=== PATIENT | female | born 1970 | race Caucasian/White ===

== ENCOUNTER 2018-04-21 09:11 | Observation (INO) | payer OTHER, SELFPAY ==
[2018-04-21] VITALS (13 sets, daily range): BP systolic 143–214; BP diastolic 85–114; PULSE 58–72; RESP 11–20; TEMP 36.3–36.5; O2SAT 96–100; BMI 34.5
--- NOTE | 2018-04-21 09:19 | ED.CHESTPAIN ---
HPI - Chest Pain General Chief Complaint: Chest Pain Stated Complaint: sent over from urgent care for heart pain Time Seen by Provider: 04/21/18 09:19 Source: patient Mode of arrival: ambulatory Limitations: no limitations History of Present Illness HPI narrative: 47-year-old female here for evaluation of left-sided chest pain. Patient states that it started at 5 o'clock this morning while she was at work. Has been consistent since then. describes it as a pressure sensation and sharp pain that radiates down her left arm. No shortness of breath. Patient is also hypertensive. She states she has a history of hypertension and has not taken any of her blood pressure medicines for the past couple days because she is running out of them. Does have a history of coronary artery disease has had a stent placement in the past. States she has also had a stroke without any residual deficits. She took a full dose aspirin last evening. She states that the discomfort she is having today feels just like the discomfort that led to her prior stent. Related Data Home Medications Medication Instructions Recorded Confirmed amlodipine 5 mg PO BID 04/21/18 04/21/18 aspirin 325 mg PO QPM 04/21/18 04/21/18 lisinopril 20 mg PO BID 04/21/18 04/21/18 metoprolol tartrate 50 mg PO QPM 04/21/18 04/21/18 metoprolol tartrate 100 mg PO DAILY 04/21/18 04/21/18 [id number] [One 1 tab PO DAILY 04/21/18 04/21/18 Daily Women 50 Plus] Allergies Allergy/AdvReac Type Severity Reaction Status Date / Time No Known Drug Allergies Allergy Unverified 04/21/18 08:34 Review of Systems Constitutional Denies fatigue, Denies fever(s) and Denies headache(s) ENT Ears, Nose, Mouth, and Throat: Denies dizziness and Denies headache(s) Cardiovascular Reports chest pain, Reports diaphoresis, Denies syncope, Denies edema, Denies irregular heart rhythm, Denies palpitations and Denies dyspnea Respiratory Denies cough, Denies pain on inspiration, Denies dyspnea and Denies wheezing Gastrointestinal Gastrointestinal: Denies abdominal pain, Denies melena, Denies diarrhea, Reports nausea and Denies vomiting Genitourinary Denies dysuria Musculoskeletal Denies myalgias and Denies arthralgias Integumentary/Breasts Denies rash and Denies wounds Neurologic Denies dizziness, Denies syncope and Denies headache(s) Endocrine Denies fatigue and Denies palpitations Allergic/Immunologic Denies wheezing [facility] Medical History Hypertension (Acute) Social History Smoking Status: Current every day smoker alcohol intake: current Comment: reviewed patient's past medical surgical social and family history Exam Initial Vital Signs Initial Vital Signs: Vital Signs Pulse Rate 65 04/21/18 09:19 Blood Pressure 214/114 H 04/21/18 09:19 Pulse Oximetry 100 04/21/18 09:19 Const General: cooperative, healthy appearing, comfortable, well developed, well groomed and No acute distress Orientation: alert, awake and oriented x3 HENMT Head: normal to inspection and normocephalic Resp Effort & Inspection: normal respiratory effort Auscultation: clear to auscultation bilaterally Cardio Rate: regular rate Rhythm: regular rhythm Heart Sounds: no murmurs Pulses: radial pulses present GI Inspection: non-distended Palpation: soft, firm and tender Skin Lesions: no lesions Rashes: no rashes Neuro General: alert, awake and oriented x3 Cognition: normal cognition Speech: speech normal Gait: normal gait Motor: muscle tone normal throughout Sensory Exam: no sensory deficits noted Extrem General: normal to inspection and capillary refill normal Psych Appearance: grossly normal and well kempt Scores HEART Score Heart Score history: Moderately Suspicious Heart Score EKG: Normal Heart Score Age: 45-64 years old Heart Score risk factors: > 3 risk factors or hx of atherosclerotic disease Heart Score troponin: < or = to normal limit Heart Score Total: 4 Course Orders Ordered: ED Orders 04/21/18 09:19 XR chest 1V Stat EKG-12 Lead Stat 04/21/18 10:25 Complete Blood Count AUTO DIFF Stat Comprehensive Metabolic Panel Stat Lipase Stat Partial Thromboplastin Time Stat Prothrombin Time INR Stat Troponin & CK Cardiac Panel Stat 04/21/18 13:35 Troponin I Stat Acetaminophen (Tylenol) 650 mg PO Q6HR PRN PRN Reason: As Needed for Fever/Mild Pain Ondansetron HCl (Zofran) 4 mg IV Q4HR PRN PRN Reason: Nausea And Vomiting Discontinued Medications Acetaminophen (Tylenol) 975 mg PO NOW ONE Stop: 04/21/18 12:15 Last Admin: 04/21/18 12:24 Dose: 975 mg Aspirin (Aspirin Chew) 324 mg PO NOW ONE Stop: 04/21/18 09:34 Last Admin: 04/21/18 10:16 Dose: 324 mg Nitroglycerin (Nitro-Bid) 1 inch TOP NOW ONE Stop: 04/21/18 09:34 Last Admin: 04/21/18 10:17 Dose: 1 inch Vital Signs - 8 hr 04/21/18 09:19 04/21/18 10:06 04/21/18 10:17 Temperature 97.7 F Pulse Rate 65 65 61 Respiratory Rate 17 Blood Pressure 214/114 H 173/106 H Blood Pressure [Left Arm] 214/114 H Pulse Oximetry 100 100 04/21/18 11:03 04/21/18 12:11 04/21/18 12:33 Temperature Pulse Rate 68 70 64 Respiratory Rate 12 15 13 Blood Pressure Blood Pressure [Left Arm] 168/108 H 170/99 H 178/101 H Pulse Oximetry 98 100 100 04/21/18 13:00 04/21/18 13:58 04/21/18 14:15 Temperature Pulse Rate 62 58 L 72 Respiratory Rate 11 L 16 Blood Pressure 168/99 H Blood Pressure [Left Arm] 154/94 H 143/88 H Pulse Oximetry 97 96 MDM - Chest Pain Lab Data Attestation: I reviewed the patient's lab results. Result diagrams: 04/21/18 10:25 04/21/18 10:25 Lab Results 04/21/18 04/21/18 04/21/18 Range/Units 10:25 10:25 10:25 WBC 5.0 (4.5-11.0) X10^3/uL RBC 4.27 (4.0-5.2) X10^6/uL Hgb 14.4 (12.0-16.0) g/dL Hct 41.1 (36-46) % MCV 96.2 (80-100) fL MCH 33.8 (26-34) PG MCHC 35.1 (30-36) % RDW 12.8 (11.6-14.8) % Plt Count 156 (150-400) X10^3/uL Neut % (Auto) 53.7 (50-75) % Lymph % (Auto) 38.3 (25-40) % [place] % (Auto) 6.3 (3-14) % Eos % (Auto) 1.2 L (2-4) % Baso % (Auto) 0.5 (0-2) % Neut # (Auto) 2700 L (6845-4964) /uL PT 11.0 (10.1-12.7) SECONDS INR 1.0 (0.9-1.3) APTT 29 (26.4-36.2) SECONDS Sodium 141 (137-145) mmol/L Potassium 4.2 (3.4-5.1) mmol/L Chloride 104 (98-107) mmol/L Carbon Dioxide 30 (22-32) mmol/L BUN 13 (7-17) mg/dL Creatinine 0.80 (0.52-1.04) mg/dL Estimated GFR > 60.0 (>60) mL/min BUN/Creatinine Ratio 16.3 (6-22) Glucose 94 (70-100) mg/dL Calcium 9.3 (8.4-10.2) mg/dL Total Bilirubin 0.5 (0.2-1.3) mg/dL AST 21 (14-36) IU/L ALT 22 (9-52) IU/L Alkaline Phosphatase 41 (38-126) U/L Total Creatine Kinase 67 (30-135) U/L Troponin I < 0.012 (0.01-0.034) ng/mL Total Protein 7.1 (6.3-8.2) g/dL Albumin 4.1 (3.5-5.0) g/dL Globulin 3.0 (1.7-4.1) g/dL Albumin/Globulin Ratio 1.4 (1.0-2.8) Lipase 30 (23-300) U/L 04/21/18 Range/Units 13:35 WBC (4.5-11.0) X10^3/uL RBC (4.0-5.2) X10^6/uL Hgb (12.0-16.0) g/dL Hct (36-46) % MCV (80-100) fL MCH (26-34) PG MCHC (30-36) % RDW (11.6-14.8) % Plt Count (150-400) X10^3/uL Neut % (Auto) (50-75) % Lymph % (Auto) (25-40) % [place] % (Auto) (3-14) % Eos % (Auto) (2-4) % Baso % (Auto) (0-2) % Neut # (Auto) (8264-6620) /uL PT (10.1-12.7) SECONDS INR (0.9-1.3) APTT (26.4-36.2) SECONDS Sodium (137-145) mmol/L Potassium (3.4-5.1) mmol/L Chloride (98-107) mmol/L Carbon Dioxide (22-32) mmol/L BUN (7-17) mg/dL Creatinine (0.52-1.04) mg/dL Estimated GFR (>60) mL/min BUN/Creatinine Ratio (6-22) Glucose (70-100) mg/dL Calcium (8.4-10.2) mg/dL Total Bilirubin (0.2-1.3) mg/dL AST (14-36) IU/L ALT (9-52) IU/L Alkaline Phosphatase (38-126) U/L Total Creatine Kinase (30-135) U/L Troponin I < 0.012 (0.01-0.034) ng/mL Total Protein (6.3-8.2) g/dL Albumin (3.5-5.0) g/dL Globulin (1.7-4.1) g/dL Albumin/Globulin Ratio (1.0-2.8) Lipase (23-300) U/L Imaging Data Chest x-ray: Radiologist's impression: PROCEDURE: XR CHEST 1V INDICATIONS: chest pain TECHNIQUE: One view of the chest was acquired. COMPARISON: [facility], , CHEST 1 VIEW, 03/28/2015, 16:24. FINDINGS: Surgical changes and devices: None. Lungs and pleura: No pleural effusions or pneumothorax. Lungs are clear. Mediastinum: Mediastinal contours appear normal. Heart size is mildly enlarged. Bones and chest wall: No suspicious bony lesions. Overlying soft tissues appear unremarkable. IMPRESSION: No acute pulmonary pathology. No significant changes from previous study. Dictated by: Roberto Price M.D. on 04/21/2018 at 9:41 Approved by: Roberto Price M.D. on 04/21/2018 at 9:42 ECG Data Attestation: I personally reviewed and interpreted this ECG as follows: Prior ECG tracings: not available for review Interpretation: Sinus rhythm ventricular rate is 71 normal axis Normal QRS normal QTC Q-waves in lead [address] T wave changes MDM Narrative Medical decision making narrative: patient with a history of coronary artery disease and stent placement. Came in hypertensive which improved with nitroglycerin paste. Patient was also given an aspirin today. She did take an aspirin last evening. Patient with left-sided chest pressure that improved with the nitroglycerin. First troponin was negative. EKG shows no signs of ST elevation DE. I discussed the case with the campground cleaning attendant at [facility] who states that if the patient is not having had a DE that keeping her here at this hospital is not unreasonable since she will not be sent immediately to a cardiac catheterization. I discussed the case with Dr. Matthews with Internal Medicine who recommended that we keep the patient here in the emergency department for a 2nd troponin so that if it was elevated we could transfer her. The 2nd troponin came back negative. During her stay here the patient accidentally took off the nitro paste in her chest pressure returned. It was readministered and she stated that her pressure then improved. Secondary to her history and physical exam in risk factors will admit the patient here for continued evaluation and treatment. Dr. Matthews will accept. Discussed this with the patient who expressed understanding and agreement. Discharge Plan Departure Patient Disposition: Admitted as Observation Clinical Impression: Chest pain
--- NOTE | 2018-04-21 09:56 | ED_ITS ---
HPI - Chest Pain General Chief Complaint: Chest Pain Stated Complaint: sent over from urgent care for heart pain Time Seen by Provider: 04/21/18 09:19 Source: patient Mode of arrival: ambulatory Limitations: no limitations History of Present Illness HPI narrative: 47-year-old female here for evaluation of left-sided chest pain. Patient states that it started at 5 o'clock this morning while she was at work. Has been consistent since then. describes it as a pressure sensation and sharp pain that radiates down her left arm. No shortness of breath. Patient is also hypertensive. She states she has a history of hypertension and has not taken any of her blood pressure medicines for the past couple days because she is running out of them. Does have a history of coronary artery disease has had a stent placement in the past. States she has also had a stroke without any residual deficits. She took a full dose aspirin last evening. She states that the discomfort she is having today feels just like the discomfort that led to her prior stent. Related Data Home Medications Medication Instructions Recorded Confirmed amlodipine 5 mg PO BID 04/21/18 04/21/18 aspirin 325 mg PO QPM 04/21/18 04/21/18 lisinopril 20 mg PO BID 04/21/18 04/21/18 metoprolol tartrate 50 mg PO QPM 04/21/18 04/21/18 metoprolol tartrate 100 mg PO DAILY 04/21/18 04/21/18 [id number] [One 1 tab PO DAILY 04/21/18 04/21/18 Daily Women 50 Plus] Allergies Allergy/AdvReac Type Severity Reaction Status Date / Time No Known Drug Allergies Allergy Unverified 04/21/18 08:34 Review of Systems Constitutional Denies fatigue, Denies fever(s) and Denies headache(s) ENT Ears, Nose, Mouth, and Throat: Denies dizziness and Denies headache(s) Cardiovascular Reports chest pain, Reports diaphoresis, Denies syncope, Denies edema, Denies irregular heart rhythm, Denies palpitations and Denies dyspnea Respiratory Denies cough, Denies pain on inspiration, Denies dyspnea and Denies wheezing Gastrointestinal Gastrointestinal: Denies abdominal pain, Denies melena, Denies diarrhea, Reports nausea and Denies vomiting Genitourinary Denies dysuria Musculoskeletal Denies myalgias and Denies arthralgias Integumentary/Breasts Denies rash and Denies wounds Neurologic Denies dizziness, Denies syncope and Denies headache(s) Endocrine Denies fatigue and Denies palpitations Allergic/Immunologic Denies wheezing [facility] Medical History Hypertension (Acute) Social History Smoking Status: Current every day smoker alcohol intake: current Comment: reviewed patient's past medical surgical social and family history Exam Initial Vital Signs Initial Vital Signs: Vital Signs Pulse Rate 65 04/21/18 09:19 Blood Pressure 214/114 H 04/21/18 09:19 Pulse Oximetry 100 04/21/18 09:19 Const General: cooperative, healthy appearing, comfortable, well developed, well groomed and No acute distress Orientation: alert, awake and oriented x3 HENMT Head: normal to inspection and normocephalic Resp Effort & Inspection: normal respiratory effort Auscultation: clear to auscultation bilaterally Cardio Rate: regular rate Rhythm: regular rhythm Heart Sounds: no murmurs Pulses: radial pulses present GI Inspection: non-distended Palpation: soft, firm and tender Skin Lesions: no lesions Rashes: no rashes Neuro General: alert, awake and oriented x3 Cognition: normal cognition Speech: speech normal Gait: normal gait Motor: muscle tone normal throughout Sensory Exam: no sensory deficits noted Extrem General: normal to inspection and capillary refill normal Psych Appearance: grossly normal and well kempt Scores HEART Score Heart Score history: Moderately Suspicious Heart Score EKG: Normal Heart Score Age: 45-64 years old Heart Score risk factors: > 3 risk factors or hx of atherosclerotic disease Heart Score troponin: < or = to normal limit Heart Score Total: 4 Course Orders Ordered: ED Orders 04/21/18 09:19 XR chest 1V Stat EKG-12 Lead Stat 04/21/18 10:25 Complete Blood Count AUTO DIFF Stat Comprehensive Metabolic Panel Stat Lipase Stat Partial Thromboplastin Time Stat Prothrombin Time INR Stat Troponin & CK Cardiac Panel Stat 04/21/18 13:35 Troponin I Stat Acetaminophen (Tylenol) 650 mg PO Q6HR PRN PRN Reason: As Needed for Fever/Mild Pain Ondansetron HCl (Zofran) 4 mg IV Q4HR PRN PRN Reason: Nausea And Vomiting Discontinued Medications Acetaminophen (Tylenol) 975 mg PO NOW ONE Stop: 04/21/18 12:15 Last Admin: 04/21/18 12:24 Dose: 975 mg Aspirin (Aspirin Chew) 324 mg PO NOW ONE Stop: 04/21/18 09:34 Last Admin: 04/21/18 10:16 Dose: 324 mg Nitroglycerin (Nitro-Bid) 1 inch TOP NOW ONE Stop: 04/21/18 09:34 Last Admin: 04/21/18 10:17 Dose: 1 inch Vital Signs - 8 hr 04/21/18 09:19 04/21/18 10:06 04/21/18 10:17 Temperature 97.7 F Pulse Rate 65 65 61 Respiratory Rate 17 Blood Pressure 214/114 H 173/106 H Blood Pressure [Left Arm] 214/114 H Pulse Oximetry 100 100 04/21/18 11:03 04/21/18 12:11 04/21/18 12:33 Temperature Pulse Rate 68 70 64 Respiratory Rate 12 15 13 Blood Pressure Blood Pressure [Left Arm] 168/108 H 170/99 H 178/101 H Pulse Oximetry 98 100 100 04/21/18 13:00 04/21/18 13:58 04/21/18 14:15 Temperature Pulse Rate 62 58 L 72 Respiratory Rate 11 L 16 Blood Pressure 168/99 H Blood Pressure [Left Arm] 154/94 H 143/88 H Pulse Oximetry 97 96 MDM - Chest Pain Lab Data Attestation: I reviewed the patient's lab results. Result diagrams: 04/21/18 10:25 04/21/18 10:25 Lab Results 04/21/18 04/21/18 04/21/18 Range/Units 10:25 10:25 10:25 WBC 5.0 (4.5-11.0) X10^3/uL RBC 4.27 (4.0-5.2) X10^6/uL Hgb 14.4 (12.0-16.0) g/dL Hct 41.1 (36-46) % MCV 96.2 (80-100) fL MCH 33.8 (26-34) PG MCHC 35.1 (30-36) % RDW 12.8 (11.6-14.8) % Plt Count 156 (150-400) X10^3/uL Neut % (Auto) 53.7 (50-75) % Lymph % (Auto) 38.3 (25-40) % [place] % (Auto) 6.3 (3-14) % Eos % (Auto) 1.2 L (2-4) % Baso % (Auto) 0.5 (0-2) % Neut # (Auto) 2700 L (7486-5358) /uL PT 11.0 (10.1-12.7) SECONDS INR 1.0 (0.9-1.3) APTT 29 (26.4-36.2) SECONDS Sodium 141 (137-145) mmol/L Potassium 4.2 (3.4-5.1) mmol/L Chloride 104 (98-107) mmol/L Carbon Dioxide 30 (22-32) mmol/L BUN 13 (7-17) mg/dL Creatinine 0.80 (0.52-1.04) mg/dL Estimated GFR > 60.0 (>60) mL/min BUN/Creatinine Ratio 16.3 (6-22) Glucose 94 (70-100) mg/dL Calcium 9.3 (8.4-10.2) mg/dL Total Bilirubin 0.5 (0.2-1.3) mg/dL AST 21 (14-36) IU/L ALT 22 (9-52) IU/L Alkaline Phosphatase 41 (38-126) U/L Total Creatine Kinase 67 (30-135) U/L Troponin I < 0.012 (0.01-0.034) ng/mL Total Protein 7.1 (6.3-8.2) g/dL Albumin 4.1 (3.5-5.0) g/dL Globulin 3.0 (1.7-4.1) g/dL Albumin/Globulin Ratio 1.4 (1.0-2.8) Lipase 30 (23-300) U/L 04/21/18 Range/Units 13:35 WBC (4.5-11.0) X10^3/uL RBC (4.0-5.2) X10^6/uL Hgb (12.0-16.0) g/dL Hct (36-46) % MCV (80-100) fL MCH (26-34) PG MCHC (30-36) % RDW (11.6-14.8) % Plt Count (150-400) X10^3/uL Neut % (Auto) (50-75) % Lymph % (Auto) (25-40) % [place] % (Auto) (3-14) % Eos % (Auto) (2-4) % Baso % (Auto) (0-2) % Neut # (Auto) (2510-6913) /uL PT (10.1-12.7) SECONDS INR (0.9-1.3) APTT (26.4-36.2) SECONDS Sodium (137-145) mmol/L Potassium (3.4-5.1) mmol/L Chloride (98-107) mmol/L Carbon Dioxide (22-32) mmol/L BUN (7-17) mg/dL Creatinine (0.52-1.04) mg/dL Estimated GFR (>60) mL/min BUN/Creatinine Ratio (6-22) Glucose (70-100) mg/dL Calcium (8.4-10.2) mg/dL Total Bilirubin (0.2-1.3) mg/dL AST (14-36) IU/L ALT (9-52) IU/L Alkaline Phosphatase (38-126) U/L Total Creatine Kinase (30-135) U/L Troponin I < 0.012 (0.01-0.034) ng/mL Total Protein (6.3-8.2) g/dL Albumin (3.5-5.0) g/dL Globulin (1.7-4.1) g/dL Albumin/Globulin Ratio (1.0-2.8) Lipase (23-300) U/L Imaging Data Chest x-ray: Radiologist's impression: PROCEDURE: XR CHEST 1V INDICATIONS: chest pain TECHNIQUE: One view of the chest was acquired. COMPARISON: [facility], , CHEST 1 VIEW, 03/28/2015, 16:24. FINDINGS: Surgical changes and devices: None. Lungs and pleura: No pleural effusions or pneumothorax. Lungs are clear. Mediastinum: Mediastinal contours appear normal. Heart size is mildly enlarged. Bones and chest wall: No suspicious bony lesions. Overlying soft tissues appear unremarkable. IMPRESSION: No acute pulmonary pathology. No significant changes from previous study. Dictated by: Roberto Price M.D. on 04/21/2018 at 9:41 Approved by: Roberto Price M.D. on 04/21/2018 at 9:42 ECG Data Attestation: I personally reviewed and interpreted this ECG as follows: Prior ECG tracings: not available for review Interpretation: Sinus rhythm ventricular rate is 71 normal axis Normal QRS normal QTC Q-waves in lead [address] T wave changes MDM Narrative Medical decision making narrative: patient with a history of coronary artery disease and stent placement. Came in hypertensive which improved with nitroglycerin paste. Patient was also given an aspirin today. She did take an aspirin last evening. Patient with left-sided chest pressure that improved with the nitroglycerin. First troponin was negative. EKG shows no signs of ST elevation ID. I discussed the case with the criminal attorney at [facility] who states that if the patient is not having had a ID that keeping her here at this hospital is not unreasonable since she will not be sent immediately to a cardiac catheterization. I discussed the case with Dr. Matthews with Internal Medicine who recommended that we keep the patient here in the emergency department for a 2nd troponin so that if it was elevated we could transfer her. The 2nd troponin came back negative. During her stay here the patient accidentally took off the nitro paste in her chest pressure returned. It was readministered and she stated that her pressure then improved. Secondary to her history and physical exam in risk factors will admit the patient here for continued evaluation and treatment. Dr. Matthews will accept. Discussed this with the patient who expressed understanding and agreement. Discharge Plan Departure Patient Disposition: Admitted as Observation Clinical Impression: Chest pain
[2018-04-21] MEDS: ASPIRIN 81 MG TAB 324 MG PO (10:16)
[2018-04-21] MEDS: NITROGLYCERIN OINT 1 INCH/GM OINT...G. TOP ×2 (10:17→23:16)
[2018-04-21 10:36] LABS: Add Manual Diff / Slide Review NO; Basophils Percent Auto 0.5 % (0-2); Eosinophils Percent Auto 1.2 % (2-4); Hematocrit 41.1 % (36-46); Hemoglobin 14.4 g/dL (12.0-16.0); Lymphocytes Percent Auto 38.3 % (25-40); Mean Corpuscular HGB Conc 35.1 % (30-36); Mean Corpuscular Hemoglobin 33.8 PG (26-34); Mean Corpuscular Volume 96.2 fL (80-100); Monocytes Percent Auto 6.3 % (3-14); Neutrophils Absolute Auto 2700 /uL (3000-5900); Neutrophils Percent Auto 53.7 % (50-75); Platelet Count 156 X10^3/uL (150-400); Red Blood Cell Count 4.27 X10^6/uL (4.0-5.2); Red Cell Distribution Width 12.8 % (11.6-14.8)
[2018-04-21 10:46] LABS: PTT Partial Thromboplastin Tim 29 SECONDS (26.4-36.2)
[2018-04-21 10:53] LABS: Alanine Aminotransferase 22 IU/L (9-52); Albumin 4.1 g/dL (3.5-5.0); Albumin Globulin Ratio 1.4 (1.0-2.8); Alkaline Phosphatase 41 U/L (38-126); Aspartate Aminotransferase 21 IU/L (14-36); BUN Creatinine Ratio 16.3 (6-22); Bilirubin Total 0.5 mg/dL (0.2-1.3); Blood Urea Nitrogen 13 mg/dL (7-17); Calcium 9.3 mg/dL (8.4-10.2); Carbon Dioxide 30 mmol/L (22-32); Chloride 104 mmol/L (98-107); Creatine Kinase 67 U/L (30-135); Estimated Glomerular Filt Rate > 60.0 mL/min (>60); Glucose 94 mg/dL (70-100); HEMOLYSIS < 15 (0-50); Lipase 30 U/L (23-300); Potassium 4.2 mmol/L (3.4-5.1); Sodium 141 mmol/L (137-145); Total Protein 7.1 g/dL (6.3-8.2)
[2018-04-21 11:04] LABS: Troponin I < 0.012 ng/mL (0.01-0.034)
[2018-04-21] MEDS: ACETAMINOPHEN 325 MG TABLET 975 MG PO (12:24)
--- NOTE | 2018-04-21 13:18 | PC.NURSE ---
Pts chest pain returning after accidentally pulling nitro paste off . Dr Arias aware,ordered ntg past 1 inch replaced.
--- NOTE | 2018-04-21 13:20 | PC.NURSE ---
dr. varela said to leave nitro if chest pain was gone, pt states still has pressure. 1 nitro paste replaced.
[2018-04-21 14:18] LABS: Troponin I < 0.012 ng/mL (0.01-0.034)
[2018-04-21] MEDS: SODIUM CHLORIDE 0.9% 1,000 ML 125 ML IV (15:12)
--- NOTE | 2018-04-21 15:27 | PC.NURSE ---
called for report to ICU and they said they would call back in 5 minutes.
--- NOTE | 2018-04-21 16:16 | PC.NURSE ---
per provider patient ok to go up without telemetry. No new orders at this time.
[2018-04-21] MEDS: NITROGLYCERIN 0.4 MG SL TAB SL ×4 (17:09→23:16)
[2018-04-21] MEDS: HEPARIN DRIP 25,000 UNIT/500 ML IV.SOLN 21.228 UNIT IV (17:13)
[2018-04-21] MEDS: HEPARIN 5,000 UNIT/ML VIAL 5000 UNIT IV (17:15)
[2018-04-21] MEDS: MORPHINE 2 MG/ML INJ IV (18:05)
[2018-04-21] MEDS: ACETAMINOPHEN 325 MG TABLET 650 MG PO (18:24)
[2018-04-21 18:33] LABS: Creatine Kinase 56 U/L (30-135)
[2018-04-21 18:48] LABS: Troponin I < 0.012 ng/mL (0.01-0.034)
--- NOTE | 2018-04-21 19:46 | PC.NURSE ---
Addendum entered by Iliana Akers R.N. 04/21/18 23:05: pt had recurrence of chest pain and headache. Morphine given. heparin gtt infusing. IVF infusing. Cool cloth to forehead and IV morphine given. Original Note: jackie note pt admitted from ER. Pt had chest pain8/10, left side. Pt describes pain as throbbing, then gets a sharp pain. With approval from Dr. Matthews, gave 3 sublingual ntg, O2 at 2L/min, heparin gtt started. pain not fully resolved, so called Dr. Matthews again. Received order for one tome dose of morphine. Pain now dulled. Dr. Matthews in to see pt.
--- NOTE | 2018-04-21 20:48 | PM.HP.1 ---
History of Present Illness Date Patient Seen: 04/21/18 Time Patient Seen: 20:49 Chief complaint: sent over from urgent care for heart pain Narrative: Patient referred to ER from walk in clinic to evaluate for chest pain. Patient notes the chest pain similar to chest pain she experienced when she had a coronary artery stent placed in 2010. Patient has continued to smoke cigarettes till AM today. Patient notes the chest pain 9/10 with radiation to the left jaw region and inside the left arm. Patient was walking at work when she first noticed the chest pain. No diaphoresis nor nausea noted. ER physican notes the Blood Pressure in the ER was 214/114. Patient has been non-compliant with her blood pressure meds. Patient History Medical History CVA (cerebral vascular accident) (Acute) Coronary artery disease (Acute) Hypertension (Acute) Family & Social History Safety & Behavioral: Feels Safe in Current Yes Environment Tobacco & Substance use: Smoking Status Current every day smoker alcohol intake current Meds Home Medications Medication Instructions Recorded Confirmed Type amlodipine 5 mg PO BID 04/21/18 04/21/18 History aspirin 325 mg PO QPM 04/21/18 04/21/18 History lisinopril 20 mg PO BID 04/21/18 04/21/18 History metoprolol tartrate 50 mg PO QPM 04/21/18 04/21/18 History metoprolol tartrate 100 mg PO DAILY 04/21/18 04/21/18 History [id number] [One 1 tab PO DAILY 04/21/18 04/21/18 History Daily Women 50 Plus] Allergies Allergy/AdvReac Type Severity Reaction Status Date / Time No Known Drug Allergies Allergy Unverified 04/21/18 08:34 Review of Systems Review of Systems All systems reviewed & are unremarkable except as noted in HPI and below Exam Vital Signs (past 8 hours): - 04/21/18 13:00 04/21/18 13:58 04/21/18 14:15 Temperature Pulse Rate 62 58 L 72 Respiratory Rate 11 L 16 Blood Pressure 168/99 H Blood Pressure [Left Arm] 154/94 H 143/88 H Pulse Oximetry 97 96 04/21/18 15:00 04/21/18 16:15 04/21/18 16:32 Temperature 97.3 F L Pulse Rate 58 L 67 62 Respiratory Rate 13 16 20 Blood Pressure 160/97 H 145/102 H Blood Pressure [Left Arm] 152/85 H Pulse Oximetry 98 98 97 Oxygen Delivery Method Room Air Narrative Exam Narrative: Patient is awake and alert in no apparent distress at rest HENMT Other: Hearing is grossly intact. Dentition is fair no lesions noted to the oral region. Nose septum to midline with no bleeding noted Eyes Other: pupils are equal round and reactive to light extraocular movement intact Neck Other: No JVD no carotid bruits Chest Other: No clearly reproducible chest wall tenderness characteristic of her chest pain Resp Other: Clear to auscultation with fairly good airflow sounds no wheezing no crackles Cardio Other: Regular in rate and rhythm no murmur rubs or gallops PMI nondisplaced pulses +3 to extremities GI Other: Soft and nontender positive bowel sounds no pedal splenomegaly no bruits no guarding Skin Other: No rashes or lesions noted non jaundiced turgor normal Neuro Other: No lateralizing neurologic deficit. Cranial nerves 2-12 grossly intact. Psych Other: Well oriented. Mood is pleasant and cooperative. Objective Labs Result Diagrams: 04/21/18 10:25 04/21/18 10:25 Labs: Laboratory Results - last 24 hr 04/21/18 04/21/18 04/21/18 10:25 10:25 10:25 WBC 5.0 RBC 4.27 Hgb 14.4 Hct 41.1 MCV 96.2 MCH 33.8 MCHC 35.1 RDW 12.8 Plt Count 156 Neut % (Auto) 53.7 Lymph % (Auto) 38.3 [place] % (Auto) 6.3 Eos % (Auto) 1.2 L Baso % (Auto) 0.5 Neut # (Auto) 2700 L PT 11.0 INR 1.0 APTT 29 Sodium 141 Potassium 4.2 Chloride 104 Carbon Dioxide 30 BUN 13 Creatinine 0.80 Estimated GFR > 60.0 BUN/Creatinine Ratio 16.3 Glucose 94 Calcium 9.3 Total Bilirubin 0.5 AST 21 ALT 22 Alkaline Phosphatase 41 Total Creatine Kinase 67 Troponin I < 0.012 Total Protein 7.1 Albumin 4.1 Globulin 3.0 Albumin/Globulin Ratio 1.4 Lipase 30 04/21/18 04/21/18 13:35 18:28 WBC RBC Hgb Hct MCV MCH MCHC RDW Plt Count Neut % (Auto) Lymph % (Auto) [place] % (Auto) Eos % (Auto) Baso % (Auto) Neut # (Auto) PT INR APTT Sodium Potassium Chloride Carbon Dioxide BUN Creatinine Estimated GFR BUN/Creatinine Ratio Glucose Calcium Total Bilirubin AST ALT Alkaline Phosphatase Total Creatine Kinase 56 Troponin I < 0.012 < 0.012 Total Protein Albumin Globulin Albumin/Globulin Ratio Lipase Assessment & Plan Plan: Assessment/Plan Narrative: 1. Unstable angina as acute coronary syndrome Patient provided IV heparin per ACS protocol. Nitro paste provided 1 in topical q.8 hours. Nitroglycerin sublingual as needed. Aspirin 325 mg daily. Requested patient to undergo nuclear treadmill stress test tomorrow in a.m.. Cardiac monitoring in ICU setting at this time. Repeat EKG in a.m.. Serial troponin and CK levels to be done. 2. Hypertensive crisis Note patient with a blood pressure of 214/114 in the emergency room setting when initially seen. Patient has been noncompliant with her home medications which include lisinopril and beta-amelia. Patient provided nitroglycerin paste. Nitroglycerin sublingual as needed. Start the patient back on lisinopril at 20 mg b.i.d.. Patient on metoprolol tartrate 25 mg b.i.d.. Pulse rate noted at 63. Holding parameter on metoprolol if pulse less than 60. 3. History of stroke CVA No residual deficit patient had the stroke around the time of her stent placement to the coronary artery in 2010. Patient on aspirin daily. Patient not on statin medication prior to admission. 4. Continued smoker addiction Lengthy conversation with the patient about smoking cessation. Nurse in the ICU was helpful in our conversation. Patient appeared to be receptive to our conversation. I screened the patient for depression. This did not appear to be an issue. Nicotine patch to be provided topically daily. DVT prophylaxis Patient on IV heparin with ACS protocol Discharge planning Patient admitted to inpatient status. ACS protocol provided. Hopefully patient will be suitable for discharge toward the end of the week. Further management hinges on results of the nuclear treadmill test scheduled for tomorrow in a.m.. Time Spent With Patient Time with patient: Greater than 35 minutes (70 min devoted to the patient patient in treatment and care) Quality AMI Clinical Trial Participant: No VTE Deep Vein Thrombosis/Pulmonary Embolism Present on Admission: No
[2018-04-21] MEDS: MORPHINE 5 MG/ML INJ 2 MG IV (22:33)
[2018-04-21] MEDS: LISINOPRIL 20 MG TABLET PO (22:35)
[2018-04-21] MEDS: METOPROLOL 25 MG TABLET PO (22:35)
[2018-04-22] VITALS (8 sets, daily range): BP systolic 92–152; BP diastolic 54–97; PULSE 55–68; RESP 10–18; TEMP 36.2–37.1; O2SAT 97–98
--- NOTE | 2018-04-22 | DI.NM.S_ITS ---
PROCEDURE: NM TEJ PERF SPECT SINGLE STUDY Exercise myocardial perfusion SPECT with gated imaging and ejection fraction RADIOPHARMACEUTICAL: 21.5 mCi Tc-99m sestamibi IV at peak exercise. INDICATIONS: unstable angina. Eval for Active Ischemic heart disease TECHNIQUE: Radiopharmaceutical was injected at peak stress test. SPECT images were obtained, with perfusion images in short axis, horizontal long axis, and vertical long axis views. Gated images were reviewed using Meizu software. COMPARISON: 04/23/2013. CARDIAC STRESS: A standard Dax treadmill exercise tolerance test was performed by the patient under the supervision of an attending staff. The patient exercised for 7 minutes and 20 seconds reaching 10.1 METs; functional aerobic impairment (QIANA) is +5%. Hemodynamic data: There is normal blood pressure and heart response to exercise. Patient achieved 72% of maximum predicted heart rate, suggesting submaximal study. Symptoms: Patient had chest pinching at rest that persisted throughout the study. EKG: No diagnostic changes of ischemia; no ectopy. FINDINGS: Raw data: There is good labeling of myocardium by radiotracer. No significant motion artifacts. Left ventricular function: Gated images demonstrate normal left ventricle wall thickening. No segmental wall motion abnormalities. Left ventricle end diastolic volume is 96 mL. Left ventricle stress ejection fraction is 74%; normal values are above 45%. Myocardial perfusion: Normal perfusion images at stress. Prone images also obtained and helpful in ruling out ischemia/infarction. IMPRESSION: Low risk, submaximal treadmill nuclear stress test 1) Normal perfusion images with no evidence of ischemia or infarction. 2) Normal left ventricular size, wall motion, and systolic function (post stress EF 74%). 3) No ECG evidence of ischemia. 4) Non-diagnostic chest pain that was present at rest and persisted throughout the study. 5) Fair exercise capacity (10.1 METs, QIANA +5%). Submaximal study as only 72% of maximum predicted heart rate achieved. 6) Compared to the pharmaceutical nuclear stress test done 04/23/2013, no significant changes in perfusion images. Findings discussed with Dr. Matthews on 04/22/2018 at 1:10PM. Dictated by: Dov Daigle MD on 04/22/2018 at 13:06 Approved by: Dov Daigle MD on 04/22/2018 at 13:17
[2018-04-22 00:18] LABS: Creatine Kinase 51 U/L (30-135)
[2018-04-22 00:34] LABS: Troponin I < 0.012 ng/mL (0.01-0.034)
[2018-04-22] MEDS: MORPHINE 2 MG/ML INJ IV ×2 (00:35→04:43)
[2018-04-22 00:39] LABS: PTT Partial Thromboplastin Tim 108 SECONDS (26.4-36.2)
[2018-04-22] MEDS: ACETAMINOPHEN 325 MG TABLET 650 MG PO ×2 (01:14→13:34)
--- NOTE | 2018-04-22 06:30 | PC.NURSE ---
NOC Shift: Pt continues to have chest pressure intermittently relieved by Morphine IV. Nitro paste removed at 0400 for hypotension 85/46 and consistent HR 54 to 56. Will replace when needed. Pt taking po food, fluids through shift w/o problems, no N/V. Kept somewhat NPO since 0500 for nuclear perfusion scan this AM. Pt aware. Heparin gtt continues at 900U/hr, next PTT @0600 follow protocol.
[2018-04-22 07:02] LABS: PTT Partial Thromboplastin Tim 49 SECONDS (26.4-36.2)
--- NOTE | 2018-04-22 08:52 | PC.NURSE ---
pt reports no pain and heparin gtt turned off per md order- prepping for treadmill this am, sb/sr without ectopy,independent as able in room
--- NOTE | 2018-04-22 11:47 | PM.TREADMILL ---
Cardiac Stress Test Report Referral & Results Date Patient Seen: 04/22/18 Time Patient Seen: 11:48 Requesting provider: Corey Matthews Indication: Chest pain, status post stent placement some time ago Rest ECG: Unremarkable Procedure Note: Today following both written and verbal informed consent the patient was exercised according to a standard Dax protocol patient went for a total of 7 min 20 sec achieving a maximum heart rate of 135 (difficult to be sure because of motion artifact) maximum systolic blood pressure of 150 to. This is approximately 10.1 METS. Exercise was terminated at this point because of inability the patient to continue. Patient was also given Cardiolite through a previously started Hep-Lock IV by the engineering technician parking approximately 1 minute prior to the cessation of exercise. Patient had a somewhat blunted heart rate response was unable to achieve target heart rate before she had to stop because fatigue and dyspnea. Patient also had left-sided ?pinching? sensation prior to start of exercise and through the duration of the test. There are no ST segment changes that were identified. Patient had lots of motion artifact during majority of the treadmill monitoring. But no changes were noted upon cessation of exercise. Functional aerobic impairment is about 0 on the sedentary scale Impression: No evidence of ischemia. Average exercise capacity. Perfusion imaging will be reported separately. Please note: Actual ECG tracings can be found in the PACS system.
--- NOTE | 2018-04-22 11:50 | P.PCN_ITS ---
Cardiac Stress Test Report Referral & Results Date Patient Seen: 04/22/18 Time Patient Seen: 11:48 Requesting provider: Corey Matthews Indication: Chest pain, status post stent placement some time ago Rest ECG: Unremarkable Procedure Note: Today following both written and verbal informed consent the patient was exercised according to a standard Dax protocol patient went for a total of 7 min 20 sec achieving a maximum heart rate of 135 (difficult to be sure because of motion artifact) maximum systolic blood pressure of 150 to. This is approximately 10.1 METS. Exercise was terminated at this point because of inability the patient to continue. Patient was also given Cardiolite through a previously started Hep-Lock IV by the cmm technician approximately 1 minute prior to the cessation of exercise. Patient had a somewhat blunted heart rate response was unable to achieve target heart rate before she had to stop because fatigue and dyspnea. Patient also had left-sided ?pinching? sensation prior to start of exercise and through the duration of the test. There are no ST segment changes that were identified. Patient had lots of motion artifact during majority of the treadmill monitoring. But no changes were noted upon cessation of exercise. Functional aerobic impairment is about 0 on the sedentary scale Impression: No evidence of ischemia. Average exercise capacity. Perfusion imaging will be reported separately. Please note: Actual ECG tracings can be found in the PACS system.
[2018-04-22] MEDS: LISINOPRIL 20 MG TABLET PO (13:34)
[2018-04-22] MEDS: METOPROLOL 25 MG TABLET PO (13:34)
--- NOTE | 2018-04-22 15:42 | CM.DANOTE ---
Discharge Planning/Care Management DCP: assessment: case received, EMR reviewed, discussed case with Dr. Matthews this morning and met now with pt. Introduced self and role. Pt is a 47 year old female who admitted here from Urgent Care clinic for chest pain and elevated BP. Admitted to hospitalist care. PCP: Dr. Guerra Payer: Bozena Roque Pt is waiting to hear results of her tests and hopes to be ok for home today. P: check in tomorrow if pt is still here and follow prn. CM Discharge Assessment Start: 04/22/18 15:39 Freq: Status: Active Protocol: Document 04/22/18 15:39 ITV (Rec: 04/22/18 15:41 ITV [id number]) Discharge Planning Assessment History Provided By Patient Medical Record Prior Living Arrangements House Household Members children Type of transporation used prior to Drives own vehicle admit Comment works at [employer] in [place] Independent with ADL's Yes Is patient alert and oriented? Yes Transportation Arrangement I drove myself here and expect to drive myself home. I 'm just waiting to see the doctor. Review Status In Process Next Review Type Continued Stay Review
[2018-04-22] MEDS: ASPIRIN 325 MG TABLET PO (17:14)
--- NOTE | 2018-04-22 17:34 | PM.DS.1 ---
History of Present Illness Chief complaint: sent over from urgent care for heart pain Narrative: Patient referred to ER from walk in clinic to evaluate for chest pain. Patient notes the chest pain similar to chest pain she experienced when she had a coronary artery stent placed in 2010. Patient has continued to smoke cigarettes till AM today. Patient notes the chest pain 9/10 with radiation to the left jaw region and inside the left arm. Patient was walking at work when she first noticed the chest pain. No diaphoresis nor nausea noted. ER physican notes the Blood Pressure in the ER was 214/114. Patient has been non-compliant with her blood pressure meds. Discharge Providers Date of admission: 04/21/18 15:28 Primary care physician: Kraig Guerra MD Discharge provider: Corey Matthews MD Summary Discharge Diagnosis: 1. Hypertensive crisis with initial blood pressure of 214/114 on admission 2. Chest pain with unclear etiology status post nuclear treadmill stress test during hospital course 3. Continued smoker addiction prior to admission 4. Medication noncompliance prior to admission Hospital Course: Patient was admitted to the hospital with diagnosis of unstable angina as the form of acute coronary syndrome. Patient had a continued chest pain in the emergency room there was also noted in the ICU setting after admission. Patient was provided IV heparin. This was in accord with ACS protocol. Nitro paste was provided 1 inch topically Q to 6-8 hours. Telemetry provided. His cardiac enzymes were done serially which were negative. No arrhythmias were identified. Patient underwent the Cardiolite treadmill test under the supervision of white mixing operator Dr. Parada. Dr. xiao called me to inform of the results. Patient exercised to 10.1 Mets. She had mild reduced exercise capacity there were no EKG changes noted during the treadmill. Patient was complaint of of the chest pain discomfort. Dr. parada's impression was patient had noncardiac chest pain. Patient was appropriate and stable for discharge to home. This was as discussed with the white mixing operator in our conversation. Status at Discharge Cognitive/behavioral status at discharge: Patient is noted awake and alert no apparent distress with good cognition no specific complaints at the time of discharge Functional status at discharge: independent ambulation Overall status at discharge: patient is back to baseline Time Spent with Patient Greater than 30 minutes Exam Vital Signs (past 8 hours): - 04/22/18 12:51 04/22/18 15:16 Temperature 98.2 F 98.0 F Pulse Rate 68 57 L Respiratory Rate 18 16 Blood Pressure 152/97 H 152/86 H Pulse Oximetry 97 97 Oxygen Delivery Method Room Air Oxygen Flow Rate 0 Objective Labs Result Diagrams: 04/21/18 10:25 04/21/18 10:25 Labs: Laboratory Results - last 24 hr 04/21/18 04/21/18 04/22/18 17:20 18:28 00:01 APTT Total Creatine Kinase 56 51 Troponin I < 0.012 < 0.012 Nasal Screen MRSA (PCR) Negative for mrsa 04/22/18 04/22/18 00:01 06:20 APTT 108 H* D 49 H D Total Creatine Kinase Troponin I Nasal Screen MRSA (PCR) Discharge Plan Discharge Plan Patient Disposition: Home, Self-Care Discharge comment: patient seen today by Supply Chain Procurement Manager who conducted the Nuclear Treadmill Stress Test. Dr Parada Supply Chain Procurement Manager advised patient to continue her blood pressure medications. His impression, the stress test revealed the chest pain was non-cardiac in origin. Provider Discharge Instructions Diet: Regular Wound Care Report to your healthcare provider any signs of infection, such as:: chills, fever and increased pain Discharge Data Primary Care Provider: Kraig Guerra Attending Provider: Corey Matthews Admit Date/Time: 04/21/18 15:28 Quality AMI Clinical Trial Participant: No VTE Deep Vein Thrombosis/Pulmonary Embolism Present on Admission: No
--- NOTE | 2018-04-22 17:41 | P.DS_ITS ---
History of Present Illness Chief complaint: sent over from urgent care for heart pain Narrative: Patient referred to ER from walk in clinic to evaluate for chest pain. Patient notes the chest pain similar to chest pain she experienced when she had a coronary artery stent placed in 2010. Patient has continued to smoke cigarettes till AM today. Patient notes the chest pain 9/10 with radiation to the left jaw region and inside the left arm. Patient was walking at work when she first noticed the chest pain. No diaphoresis nor nausea noted. ER physican notes the Blood Pressure in the ER was 214/114. Patient has been non-compliant with her blood pressure meds. Discharge Providers Date of admission: 04/21/18 15:28 Primary care physician: Kraig Guerra MD Discharge provider: Corey Matthews MD Summary Discharge Diagnosis: 1. Hypertensive crisis with initial blood pressure of 214/ 114 on admission 2. Chest pain with unclear etiology status post nuclear treadmill stress test during hospital course 3. Continued smoker addiction prior to admission 4. Medication noncompliance prior to admission Hospital Course: Patient was admitted to the hospital with diagnosis of unstable angina as the form of acute coronary syndrome. Patient had a continued chest pain in the emergency room there was also noted in the ICU setting after admission. Patient was provided IV heparin. This was in accord with ACS protocol. Nitro paste was provided 1 inch topically Q to 6-8 hours. Telemetry provided. His cardiac enzymes were done serially which were negative. No arrhythmias were identified. Patient underwent the Cardiolite treadmill test under the supervision of rim fire priming tool setter Dr. Parada. Dr. xiao called me to inform of the results. Patient exercised to 10.1 Mets. She had mild reduced exercise capacity there were no EKG changes noted during the treadmill. Patient was complaint of of the chest pain discomfort. Dr. parada' s impression was patient had noncardiac chest pain. Patient was appropriate and stable for discharge to home. This was as discussed with the rim fire priming tool setter in our conversation. Status at Discharge Cognitive/behavioral status at discharge: Patient is noted awake and alert no apparent distress with good cognition no specific complaints at the time of discharge Functional status at discharge: independent ambulation Overall status at discharge: patient is back to baseline Time Spent with Patient Greater than 30 minutes Exam Vital Signs (past 8 hours): - 04/22/18 12:51 04/22/18 15:16 Temperature 98.2 F 98.0 F Pulse Rate 68 57 L Respiratory Rate 18 16 Blood Pressure 152/97 H 152/86 H Pulse Oximetry 97 97 Oxygen Delivery Method Room Air Oxygen Flow Rate 0 Objective Labs Result Diagrams: 04/21/18 10:25 04/21/18 10:25 Labs: Laboratory Results - last 24 hr 04/21/18 04/21/18 04/22/18 17:20 18:28 00:01 APTT Total Creatine Kinase 56 51 Troponin I < 0.012 < 0.012 Nasal Screen MRSA (PCR) Negative for mrsa 04/22/18 04/22/18 00:01 06:20 APTT 108 H* D 49 H D Total Creatine Kinase Troponin I Nasal Screen MRSA (PCR) Discharge Plan Discharge Plan Patient Disposition: Home, Self-Care Discharge comment: patient seen today by Computer Analyst who conducted the Nuclear Treadmill Stress Test. Dr Parada Computer Analyst advised patient to continue her blood pressure medications. His impression, the stress test revealed the chest pain was non-cardiac in origin. Provider Discharge Instructions Diet: Regular Wound Care Report to your healthcare provider any signs of infection, such as:: chills, fever and increased pain Discharge Data Primary Care Provider: Kraig Guerra Attending Provider: Corey Matthews Admit Date/Time: 04/21/18 15:28 Quality AMI Clinical Trial Participant: No VTE Deep Vein Thrombosis/Pulmonary Embolism Present on Admission: No
--- NOTE | 2018-04-22 18:21 | PC.NURSE ---
1810-Patient discharged per MD order. Patient stable at time of discharge. Instructions given and patient verbalizes understanding. Return to work slip provided per patient request. IV x2 dc'd patient tolerated well.
== END 2018-04-22 18:09 | disposition home or self-care (01) ==
LOC: ED 15:07 → ICU 15:28
PROVIDERS: Admitting Provider Internal Medicine; Emergency Provider Emergency Medicine; Family Provider Internal Medicine; PCP Internal Medicine; Visit Provider Internal Medicine
DX: I16.9 Hypertensive crisis, unspecified (principal); R07.9 Chest pain, unspecified; I24.9 Acute ischemic heart disease, unspecified; I11.0 Hypertensive heart disease with heart failure; Z86.73 Personal history of transient ischemic attack (TIA), and cerebral infarction without residual deficits; F17.210 Nicotine dependence, cigarettes, uncomplicated; I25.110 Atherosclerotic heart disease of native coronary artery with unstable angina pectoris; Z91.14 Patient's other noncompliance with medication regimen; T46.4X6A Underdosing of angiotensin-converting-enzyme inhibitors, initial encounter; Z95.5 Presence of coronary angioplasty implant and graft
CPT/HCPCS: 36415; 71045; 78451; 80053; 82550; 82553; 83690; 84484; 85025; 85610; 85730; 87797; 93005; 93010; 93016; 93017; 93018; 99285; G0378; A9502; J1644; J2270

== ENCOUNTER → 2019-03-04 09:28 | Outpatient (CLI) | payer OTHER, SELFPAY ==
[2018-04-21 16:10] VITALS: BMI 34.5
--- NOTE | 2019-03-04 09:31 | DI.RAD.S_ITS ---
PROCEDURE: XR CHEST 2V INDICATIONS: chest congestion TECHNIQUE: 2 views of the chest were acquired. COMPARISON: [facility], CR, XR CHEST 2 VIEWS, 12/01/2018, 8:42. [facility], CR, XR CHEST 1V, 04/21/2018, 9:23. FINDINGS: Surgical changes and devices: None. Lungs and pleura: Lungs are clear. No pleural effusions or pneumothorax. Mediastinum: Mediastinal contours are normal. Heart size is normal. Bones and chest wall: No suspicious bony abnormalities. Soft tissues appear unremarkable. IMPRESSION: 1. No acute cardiopulmonary disease. Dictated by: Deep Prince M.D. on 03/04/2019 at 10:04 Approved by: Deep Prince M.D. on 03/04/2019 at 10:05
[2019-03-04 10:08] LABS: Creatine Kinase 47 U/L (30-135)
[2019-03-04 10:11] LABS: D Dimer < 200 ng/mL (<230)
[2019-03-04 10:20] LABS: Troponin I < 0.012 ng/mL (0.01-0.034)
== END ==
PROVIDERS: Family Provider Internal Medicine; PCP Internal Medicine; Visit Provider Physician Assistant
DX: R09.89 Other specified symptoms and signs involving the circulatory and respiratory systems (principal)
CPT/HCPCS: 36415; 71046; 82550; 84484; 85379